=== PATIENT | female | born 1990 | race Caucasian/White ===

== ENCOUNTER 2019-03-20 16:51 | Emergency (ER) | payer SELFPAY ==
[2019-03-20 17:04] VITALS: BP 125/73
--- NOTE | 2019-03-20 17:35 | ER Document Report ---
HPI - HPI Time Seen by Provider: 03/20/19 17:35 Pain Level: 2 Notes: Patient is an otherwise healthy 28-year-old female presented to the emergency department chief complaint of sore throat and left ear pain. Patient reports sore throat has been ongoing for approximately 2 days. She states that she has a history of strep throat. She denies any fevers. She also reports left ear pain started this morning. She denies any nausea, vomiting or diarrhea. - REPRODUCTIVE Reproductive: DENIES: : Past Medical History - General Information source: Patient - Social History Smoking Status: Never Smoker Frequency of alcohol use: None Drug Abuse: None Family History: Reviewed & Not Pertinent - Medical History Medical History: Negative Surgical Hx: Negative - Immunizations Immunizations up to date: Yes Hx Diphtheria, Pertussis, Tetanus Vaccination: Yes Vertical Provider Document - CONSTITUTIONAL Notes: PHYSICAL EXAMINATION: GENERAL: Well-appearing, well-nourished and in no acute distress. HEAD: Atraumatic, normocephalic. EYES: Pupils equal round extraocular movements intact, conjunctiva are normal. ENT: Nares patent, Tonsils mildly swollen with exudates, no evidence of peritonsillar abscess, uvula midline. Bilateral TMs unremarkable. NECK: Normal range of motion, no cervical lymphadenopathy. LUNGS: No respiratory distress, lung sounds clear and equal bilaterally. Musculoskeletal: Normal range of motion NEUROLOGICAL: Normal speech, normal gait. PSYCH: Normal mood, normal affect. SKIN: Warm, Dry, normal turgor, no rashes or lesions noted. Course - Re-evaluation Re-evalutation: 03/20/19 18:00 Rapid strep is negative. Throat culture pending. Patient will be given a shot of IM Decadron. Patient will be discharged home in stable condition with ED return precautions. Patient verbalizes understanding and agreement with same. The patient's emergency department workup and current diagnosis were explained to the patient and or family. Follow-up instructions were provided. Medications if prescribed were discussed. Instructions for when to return to the emergency department including specific worrisome symptoms were discussed with the patient and/or family. - Vital Signs Vital signs: Temp Pulse Resp BP Pulse Ox 98.6 F 77 14 125/73 99 03/20/19 17:01 03/20/19 17:01 03/20/19 17:01 03/20/19 17:01 03/20/19 17:01 Discharge - Discharge Clinical Impression: Sore throat, Ear pain, left Condition: Stable Disposition: HOME, SELF-CARE Additional Instructions: SORE THROAT: Sore throats may be caused by viruses, bacteria, or fungi. Most are due to a virus, and must get better on their own. Bacterial sore throats, particularly those due to "strep," need treatment with antibiotics. If an antibiotic is prescribed, be sure to take the medication for a full 10 days. Failure to take the antibiotic can result in complications such as rheumatic fever. Sometimes, an injection of antibiotics is given instead of pills or liquid. This single "shot" is equal in effectiveness to the oral medication. To relieve symptoms, take acetaminophen for pain. Sip clear liquids frequently, or eat popsicles or ice chips. Anesthetic sprays or lozenges may help. Make sure the air in the room is not too dry. Avoid using decongestants or antihistamines. Call the doctor if there is no improvement in two days, or if you have difficulty breathing, increasing throat pain, high fever, rash, or frequent vomiting. STEROID MEDICATION: You have been given a medicine of the cortisone/steroid class. This medication is used to control inflammation or allergy. It is usually only given for a short period of time, until the acute process subsides. There are usually no side effects from short-term use of cortisone-like medications. Some persons feel an increased sense of well-being and are not sleepy at bedtime. Long-term use of cortisone medications is best avoided, unless required for a severe condition. If your condition does not remit, or relapses after the course of corticosteroid medication, you should consult your physician. FOLLOW-UP CARE: If you have been referred to a physician for follow-up care, call the physicians office for an appointment as you were instructed or within the next two days. If you experience worsening or a significant change in your symptoms, notify the physician immediately or return to the Emergency Department at any time for re-evaluation. The rapid strep was negative today. Throat culture is pending. If the throat culture is positive someone will call you and will either call in an antibiotic for you or will have you come back to the ER for an injection of penicillin. I did give you a injection of Decadron today this is a steroid. It would last in her system for 3 days and should help with the inflammation and swelling in your throat. Please follow the above instructions regarding sore throats. Use anesthetic sprays or Cepacol lozenges to help with the pain. Tylenol or ibuprofen every 6 hours. Push fluids. Return to the emergency department with any worsening symptoms or if you are unable to swallow.
[2019-03-20] MEDS ORDERED: DEXAMETHASONE SOD PHOS INJ 10 MG/1 ML VIAL IM ONE (18:00)
== END 2019-03-20 18:18 | disposition home or self-care (01) ==
LOC: ER 16:51
DX: J02.9 Acute pharyngitis, unspecified (principal); H92.02 Otalgia, left ear
CPT/HCPCS: 99283; 96372; 87070; 87880; J1100; 87077